=== PATIENT | female | born 1970 | race Caucasian/White ===

== ENCOUNTER → 2018-10-08 | Day surgery (SDC) | payer OTHER ==
[~2018-10-08] MED LIST: AJOVY INJ; CEFAZOLIN SOD 1 GM/NS 50ML 50 ML IV ONE; DEXAMETHASONE SOD PHOS INJ 4 MG/ML VIAL ONE; FAMOTIDINE40 MG PO; FENTANYL CITRATE/PF 100MCG/2 ML INJ ONE; KETOROLAC TROMETHAMINE 30 MG/ML VIAL ONE; LIDOCAINE HCL 2% LOCAL INJ 5 ML SDV VIAL INJ ONE; METOCLOPRAMIDE HCL 10 MG/2ML VIAL ONE; MIDAZOLAM HCL 2 MG/2 ML VIAL ONE; ONDANSETRON HCL INJ 2MG/ML 2ML 2 MG/ML VIAL ONE; PRO-AIR INH; PROPOFOL IV EMULSION 10 MG/ML 20 ML VIAL ONE; SEVOFLURANE INHAL SOLN 250 ML PEN BTL ONE; SUMATRIPTAN SU100 MG PO; TRI SPRINTEC PO
--- OUTSIDE RECORDS SUMMARY | 2018-10-08 05:51 | XMS REPORT ---
Author Organization Unknown Address [address] [place] [id number] Phone [phone] Care Team Providers Care Dental Surgery Doctor Name Role Phone ERMA GORDON 3 [phone] DR. BLAIR DUNCAN 4 [phone] NBA MAIER JR., MD 107 Unavailable Allergies Code Code System Name Reaction Severity Status Onset 5489 RxNorm Hydrocodone Active Penicillins Active Medications Name Status Start Date Stop Date amoxicillin 500 mg capsule Completed 07/28/2016 azithromycin 250 mg tablet Unknown Not available clarithromycin 500 mg tablet Completed 07/28/2016 Dulera 100 mcg-5 mcg/actuation HFA aerosol inhaler Completed 07/28/2016 famotidine 40 mg tablet Take 1 tablet every day by oral route for 30 days. Active Not available fluticasone 50 mcg/actuation nasal spray,suspension Completed 07/28/2016 Imitrex 100 mg tablet Take as needed by oral route. Active Not available lansoprazole 30 mg capsule,delayed release Completed 07/28/2016 levofloxacin 500 mg tablet Completed 07/28/2016 methylprednisolone 4 mg tablets in a dose pack Unknown Not available metronidazole 500 mg tablet Completed 07/28/2016 montelukast 10 mg tablet Completed 07/28/2016 pantoprazole 40 mg tablet,delayed release Take 1 tablet every day by oral route. Completed 10/05/2017 Prilosec 1 tablet by mouth bid Completed 10/05/2017 ProAir HFA 90 mcg/actuation aerosol inhaler Inhale 2 puffs as needed by inhalation route. Active Not available sulfamethoxazole 800 mg-trimethoprim 160 mg tablet Completed 07/28/2016 TriNessa (28) 1 tablet by mouth qd Active Not available TriNessa (28) 0.18 mg(7)/0.215 mg(7)/0.25 mg(7)-35 mcg tablet Unknown Not available Virtussin AC 10 mg-100 mg/5 mL oral liquid Completed 07/28/2016 zonisamide 25 mg capsule Take 2 capsules every day by oral route. Active Not available Problems No Known Problems Procedures Date Name Performed by Colonoscopy Information not available Eye Surgery Information not available Other Information not available Lab Results None recorded. Past Encounters 10/04/2017 Gastroesophageal Reflux Disease without Esophagitis; Anxiety Disorder; Asthma; Fibromyalgia Nba Maier MD: [address], [address] [address], Ph. 07/28/2016 Gastroesophageal Reflux Disease without Esophagitis; Helicobacter-associated Gastritis; Dysphagia; Hiatal Hernia Maye Cadet CONSULTING APPLICATION ENGINEER: [address] [address], [place] [address], Ph. Social History Smoking Status Never Smoker Vaccine List None recorded. Plan of Care Reminders Provider Appointments None recorded. Lab None recorded. Referral None recorded. Procedures None recorded. Surgeries None recorded. Imaging None recorded. Vitals 10/04/2017 03:45PM REFILL APPT Height Weight BMI Blood Pressure 5 ft 7 in 151 lbs 23.6 kg/m2 122/72 mm[Hg] 07/28/2016 09:00AM CONSULTING APPLICATION ENGINEER EST PT Height Weight BMI Blood Pressure 5 ft 7 in 160 lbs 25.1 kg/m2 124/63 mm[Hg]
[2018-10-08 09:35] VITALS: BP 102/52
--- NOTE | 2018-10-08 12:04 | Operative Report ---
DATE OF PROCEDURE: 10/08/2018 SURGEON: Fili Bustillos MD [employer] ARCHITECT: Korey Velez PA-C. PREOPERATIVE DIAGNOSIS: Derangement, left knee. POSTOPERATIVE DIAGNOSIS: Left knee symptomatic medial parapatellar plica. PROCEDURE: Left knee arthroscopy, resection of medial parapatellar plica. INDICATIONS: The patient is a 48-year-old lady, who complains of over a year history of mechanical pain in her left knee. She has been treated with extensive conservative management, but continues to complain of disabling symptoms. She would like to proceed with more definitive intervention. The risks and benefits of diagnostic arthroscopy with repairs as indicated have been explained. She states she understands and wishes to proceed. DESCRIPTION OF PROCEDURE: The patient was brought to the operating room and placed under general anesthetic. Her left lower extremity was prepped and draped in a sterile manner. The extremity had been exsanguinated and a proximal tourniquet was briefly inflated to 300 mmHg. A preoperative time-out was performed. Standard arthroscopy portals were established. The knee was infiltrated with sterile saline and systematically inspected. The suprapatellar pouch and patellofemoral groove were unremarkable. There was no evidence of synovitis. There was no evidence of cartilage wear. The medial compartment was inspected. There was a large prominent medial parapatellar plica. The medial articular cartilage was well preserved on the distal femur and proximal tibia. The meniscus was visualized and carefully probed. There was no evidence of a meniscal tear. The cruciate ligaments were inspected and noted to be normal. The lateral compartment was unremarkable. The medial parapatellar plica was then aggressively resected. Before and after photographs were taken. The arthroscopic instruments were then removed. The portal incisions were closed with nylon stitches. A sterile bandage was applied. There was no blood loss and all needle and sponge counts were correct. Fili Bustillos MD DR/HERON /[id number]
== END | disposition home or self-care (01) ==
LOC: OR 05:48 → EDBD 07:30
PROVIDERS: ATTEND Specialist
DX: M67.52 Plica syndrome, left knee (principal); G43.909 Migraine, unspecified, not intractable, without status migrainosus; K21.9 Gastro-esophageal reflux disease without esophagitis; K44.9 Diaphragmatic hernia without obstruction or gangrene; F41.9 Anxiety disorder, unspecified; Z88.6 Allergy status to analgesic agent
CPT/HCPCS: 29875; 81025; J0690; J1100; J1885; J2001; J2250; J2405; J2704; J2765